=== PATIENT | female | born 1950 | race Caucasian/White ===

== ENCOUNTER → 2019-03-16 | Outpatient (CLI) | payer MEDICARE, OTHER ==
--- NOTE | 2019-03-16 14:14 | RADIOLOGY IMAGING REPORT ---
FACILITY: [facility] [place] PATIENT NAME: ANETA GARCIA : [id number] MR: [id number] V: [id number] EXAM DATE: [id number] ORDERING PHYSICIAN: PASCALE DU TECHNOLOGIST: Micheline Mcknight PROCEDURE: BILATERAL DIGITAL SCREENING MAMMOGRAM WITH CAD ASSISTED INTERPRETATION & 3D TOMOSYNTHESIS REASON FOR STUDY: Screening FAMILY HISTORY OF BREAST CANCER: Maternal Grandmother in her 70's BREAST PROCEDURES/TREATMENTS: None COMPARISON: 08/17/17, 07/14/17, 09/05/13 VIEWS OBTAINED: Bilateral 2D & 3D full field CC & MLO BREAST DENSITY: The breasts are heterogeneously dense which can obscure small masses. MAMMOGRAM FINDINGS: The parenchymal pattern has remained stable allowing for difference in mammographic technique & patient positioning. IMPRESSION: BIRADS 1: Negative. DIAGNOSTIC CATEGORY 1--NEGATIVE. RECOMMENDATIONS: ROUTINE MAMMOGRAM AND CLINICAL EVALUATION. Dictated by: Reena Silvestre M.D. on 03/16/2019 at 12:01 Transcribed by: NEY on 03/16/2019 at 13:16 Approved by: Reena Silvestre M.D. on 03/16/2019 at 14:13 [facility]
== END ==
LOC: MAMO 00:33
PROVIDERS: ATTEND Obstetrics & Gynecology
DX: Z12.31 Encounter for screening mammogram for malignant neoplasm of breast (principal); Z80.3 Family history of malignant neoplasm of breast
CPT/HCPCS: 77063; 77067

== ENCOUNTER → 2019-05-11 | Outpatient (CLI) | payer MEDICARE ==
[~2019-05-11] MED LIST: GADOBENATE 529MG/1ML 15ML VIAL IVP ONE
--- NOTE | 2019-05-11 10:45 | RADIOLOGY IMAGING REPORT ---
FACILITY: [facility] PATIENT NAME: Judy Loyola : 1950 MR: [id number] V: [id number] EXAM DATE: ORDERING PHYSICIAN: ESTEFANI JIMENEZ TECHNOLOGIST: Location: [facility] [place] Patient: Judy Loyola : 1950 Visit/Account:[id number] Date of Sevice: 05/11/2019 MRI of the right hand with and without contrast Indication: Pain. Fourth and fifth digit pain and swelling. Comparison: None available Technique: Multiplanar, multisequence MRI examination is performed of the right hand before and after the administration of 15 mL IV MultiHance. Findings: The marrow pattern of the included metacarpals is normal. The marrow pattern of the phalanges is norm al. No evidence of joint centered erosions. Mild changes of osteoarthritis are seen at the interphala ngeal joint of the thumb. Mild changes of osteoarthritis are seen at the DIP joints of the fingers. C orrelate with plain film radiographs. The visualized intrinsic musculature of the hand is normal. The flexor and extensor tendons are normal in thickness and signal. There is a benign-appearing flexo r tendon sheath ganglion identified along the palmar and ulnar margin of the third metacarpophalangea l joint. This measures 4 mm in greatest dimension. No joint space is distended with T2 signal. Following the administration of gadolinium, there is no e vidence to suggest enhancing erosions or focal synovitis. No evidence of enhancing tenosynovitis. IMPRESSION: 1. No evidence of enhancing erosion or joint centered synovitis involving the MCP and interphalangeal joints of the right hand. 2. 4 mm flexor tendon sheath ganglion along the long finger flexor tendon sheath as above. 3. Findings most consistent with mild severity osteoarthritis involving the DIP joints of the fingers and the interphalangeal joint of the thumb. Correlate with plain films. Report Dictated By: Abiodun Chatman at 05/11/2019 10:15 AM Report E-Signed By: Abiodun Chatman at 05/11/2019 10:38 AM [id number]
== END ==
LOC: MRI 01:02
PROVIDERS: ATTEND Internal Medicine
DX: M35.9 Systemic involvement of connective tissue, unspecified (principal)
CPT/HCPCS: 73223; A9577